=== PATIENT | male | born 1980 | race Hispanic/Latino ===

== ENCOUNTER 2020-06-19 07:43 | Inpatient (IN) | payer MEDICAID, OTHER ==
[~2020-06-19] VITALS: Ht 167.6 cm; Wt 119.3 kg
[2020-06-19 08:08] LABS: BASOPHILS % (AUTO) 0.5 % (0.0-5.0); HEMATOCRIT 44.9 % (42-54); LYMPHOCYTES % (AUTO) 11.2 % (21.0-51.0); MEAN CORPUSCULAR HEMOGLOBIN 27.9 pg (27.0-33.0); MEAN CORPUSCULAR HGB CONC 32.3 g/dL (32.0-36.0); MEAN CORPUSCULAR VOLUME 86.5 fL (79-99); MONOCYTES % (AUTO) 5.2 % (3.0-13.0); NEUTROPHILS % (AUTO) 81.8 % (40.0-77.0); PLATELET COUNT (AUTO) 332 K/uL (130-400); RED BLOOD CELL COUNT(AUTO) 5.19 MIL/uL (4.50-6.20); RED CELL DISTRIBUTION WIDTH 14.8 % (11.0-15.5); WHITE BLOOD COUNT (AUTO) 7.7 K/uL (4.8-10.8)
[2020-06-19] MEDS ORDERED: ASPIRIN 325 MG TABLET ONE (08:20)
[2020-06-19 08:21] LABS: INR 1.25 (0.85-1.15); PROTHROMBIN TIME 13.1 SEC (9.6-11.6)
[2020-06-19 08:22] LABS: APPEARANCE,URINE Clear (CLEAR); BILIRUBIN,URINE Negative (NEGATIVE); COLOR,URINE Yellow (YELLOW); GLUCOSE, URINE (UA) Negative (NEGATIVE); KETONES,URINE Negative (NEGATIVE); LEUKOCYTE ESTERASE ,URINE Trace (NEGATIVE); NITRATE,URINE Negative (NEGATIVE); OCCULT BLOOD,URINE Negative (NEGATIVE); PH,URINE 5.5 (5.0-8.0); PROTEIN,URINE POS 2+ mg/dL (NEGATIVE); UROBILINOGEN,URINE 0.2 mg/dL (0.2-1.0)
[2020-06-19 08:23] LABS: PARTIAL THROMBOPLASTIN TIME 27.6 SEC (26.3-35.5)
[2020-06-19 08:29] LABS: AMPHET/METH SCREEN,URINE NEGATIVE (NEGATIVE); BARBITURATE SCREEN, URINE NEGATIVE (NEGATIVE); BENZODIAZEPINES SCREEN,URINE NEGATIVE (NEGATIVE); CANNABINOID SCREEN,URINE NEGATIVE (NEGATIVE); COCAINE SCREEN,URINE NEGATIVE (NEGATIVE); OPIATE SCREEN,URINE NEGATIVE (NEGATIVE); PHENCYCLIDINE SCREEN,URINE NEGATIVE (NEGATIVE)
[2020-06-19 08:29] LABS: ALBUMIN 3.5 g/dL (3.5-5.0); BILIRUBIN,TOTAL 0.9 mg/dL (0.2-1.0); CREATININE 1.5 mg/dL (0.5-1.5); POTASSIUM 3.5 mmol/L (3.5-5.1); TOTAL PROTEIN, SERUM 7.6 g/dL (6.0-8.3)
[2020-06-19 08:48] LABS: BACTERIA,URINE Rare /HPF (None Seen); RBC,URINE None Seen /HPF (0-1)
[2020-06-19 08:49] LABS: SQUAMOUS EPITHELIAL CELL,UR 0-2 /HPF (0-2)
[2020-06-19] MEDS ORDERED: METOPROLOL TARTRATE 1 MG/ML 5ML VIAL IV ONE (08:59)
[2020-06-19] MEDS ORDERED: LORAZEPAM 2 MG/ML 1 ML VIAL ONE ×2 (09:19→23:17)
[2020-06-19 13:33] LABS: THYROID STIMULATING HORMONE 2.32 uIU/mL (0.36-3.74)
[2020-06-19] MEDS ORDERED: FUROSEMIDE 20MG VIAL IV SCH (14:00)
[2020-06-19] MEDS ORDERED: FUROSEMIDE 20MG VIAL ONE (15:07)
[2020-06-19] MEDS ORDERED: ATORVASTATIN 20 MG TABLET ONE (19:44)
[2020-06-19] MEDS ORDERED: METOPROLOL TARTRATE 25 MG TAB ONE (19:44)
[2020-06-19] MEDS ORDERED: FAMOTIDINE 20MG TAB ONE (19:44)
[2020-06-19] MEDS: METOPROLOL TARTRATE 25 MG TAB PO SCH (21:00)
[2020-06-19] MEDS: ATORVASTATIN 20 MG TABLET PO SCH (21:00)
[2020-06-19] MEDS: FAMOTIDINE 20MG TAB PO SCH (21:00)
[2020-06-19] MEDS ORDERED: MAG/ALUM/SIMETH 30 ML UDCUP ONE (21:43)
[2020-06-20 05:37] LABS: BASOPHILS % (AUTO) 0.9 % (0.0-5.0); EOSINOPHILS % (AUTO) 1.1 % (0.0-8.0); HEMATOCRIT 44.9 % (42-54); LYMPHOCYTES % (AUTO) 17.7 % (21.0-51.0); MEAN CORPUSCULAR HEMOGLOBIN 28.2 pg (27.0-33.0); MEAN CORPUSCULAR VOLUME 85.7 fL (79-99); MONOCYTES % (AUTO) 6.5 % (3.0-13.0); NEUTROPHILS % (AUTO) 73.4 % (40.0-77.0); PLATELET COUNT (AUTO) 314 K/uL (130-400); RED BLOOD CELL COUNT(AUTO) 5.24 MIL/uL (4.50-6.20); RED CELL DISTRIBUTION WIDTH 14.7 % (11.0-15.5); WHITE BLOOD COUNT (AUTO) 7.9 K/uL (4.8-10.8)
[2020-06-20 06:13] LABS: CREATININE 1.5 mg/dL (0.5-1.5); POTASSIUM 4.2 mmol/L (3.5-5.1)
[2020-06-20] MEDS ORDERED: ASPIRIN 81MG CHEW TAB ONE (08:17)
[2020-06-20] MEDS ORDERED: FAMOTIDINE 20MG TAB ONE ×2 (08:17→20:07)
[2020-06-20] MEDS ORDERED: METOPROLOL TARTRATE 25 MG TAB ONE ×2 (08:18→10:04)
[2020-06-20] MEDS ORDERED: ENOXAPARIN SODIUM 40 MG/0.4 ML SYRINGE SQ ONE (08:18)
[2020-06-20] MEDS: ASPIRIN 81MG CHEW TAB PO SCH (09:00)
[2020-06-20] MEDS: FAMOTIDINE 20MG TAB PO SCH ×2 (09:00→21:00)
[2020-06-20] MEDS: METOPROLOL TARTRATE 25 MG TAB PO SCH ×2 (09:00→21:00)
[2020-06-20] MEDS ORDERED: ENOXAPARIN SODIUM 40 MG/0.4 ML SYRINGE SQ SCH (09:00)
[2020-06-20] MEDS ORDERED: METOPROLOL TARTRATE 50 MG TAB ONE ×2 (10:04→20:07)
[2020-06-20] MEDS: LOSARTAN 50 MG TABLET PO SCH (10:15)
[2020-06-20] MEDS ORDERED: METOPROLOL TARTRATE 50 MG TAB PO SCH ×2 (10:15→21:00)
[2020-06-20] MEDS ORDERED: FUROSEMIDE 40MG VIAL IV SCH (10:15)
[2020-06-20] MEDS: SPIRONOLACTONE 25 MG TAB PO SCH (10:15)
[2020-06-20] MEDS ORDERED: FUROSEMIDE 40MG VIAL ONE (10:55)
[2020-06-20] MEDS ORDERED: SPIRONOLACTONE 25 MG TAB ONE (10:56)
[2020-06-20] MEDS ORDERED: LOSARTAN 50 MG TABLET ONE (10:56)
[2020-06-20] MEDS ORDERED: ALPRAZOLAM 0.25 MG TABLET ONE (12:17)
[2020-06-20] MEDS ORDERED: DiphenhydrAMINE HCL 50 MG/ML VIAL ONE (15:31)
[2020-06-20] MEDS ORDERED: ATORVASTATIN 20 MG TABLET ONE (20:07)
[2020-06-20] MEDS: ATORVASTATIN 20 MG TABLET PO SCH (21:00)
[2020-06-20 22:45] VITALS: BP 131/89
[2020-06-20] MEDS ORDERED: METO-391 PO (22:58)
[2020-06-20] MEDS ORDERED: MAGN100T5 PO (22:58)
[2020-06-20] MEDS ORDERED: SPIR50TA5 PO (22:58)
[2020-06-20] MEDS ORDERED: TAMS-1 PO (22:58)
[2020-06-20] MEDS ORDERED: FURO40TA5 PO (22:58)
[2020-06-20] MEDS ORDERED: LISI20TA24 PO (22:58)
[2020-06-20] MEDS ORDERED: APIX5TAB PO (22:58)
[2020-06-21] MEDS ORDERED: TEMAZEPAM 7.5 MG CAPSULE PO ONE (00:12)
[2020-06-21 03:49] LABS: POTASSIUM 4.6 mmol/L (3.5-5.1)
[2020-06-21 04:09] VITALS: BP 97/65
[2020-06-21 07:30] VITALS: BP 126/81
[2020-06-21] MEDS ORDERED: DIGOXIN 250 MCG/ML 2ML AMP IV SCH (09:45)
[2020-06-21] MEDS: FAMOTIDINE 20MG TAB PO SCH ×2 (10:19→20:24)
[2020-06-21] MEDS: ASPIRIN 81MG CHEW TAB PO SCH (10:19)
[2020-06-21] MEDS: APIXABAN 5 MG TABLET PO SCH ×2 (10:19→20:23)
[2020-06-21] MEDS: FUROSEMIDE 20MG VIAL IV SCH ×2 (10:19→20:52)
[2020-06-21] MEDS: LOSARTAN 50 MG TABLET PO SCH (10:19)
[2020-06-21] MEDS: SPIRONOLACTONE 25 MG TAB PO SCH (10:20)
[2020-06-21 11:55] VITALS: BP 121/91
[2020-06-21] MEDS: MAGNESIUM CHLORIDE 70 MG TABLET.SA PO SCH ×2 (12:27→20:23)
[2020-06-21] MEDS: METOPROLOL SUCCINATE 50 MG TAB.SR.24H PO SCH ×2 (12:27→20:23)
[2020-06-21] MEDS: LISINOPRIL 20 MG TABLET PO SCH ×2 (12:28→20:24)
[2020-06-21 15:50] VITALS: BP 119/88
[2020-06-21 19:31] VITALS: BP 132/77
[2020-06-21] MEDS: ATORVASTATIN 20 MG TABLET PO SCH (20:23)
[2020-06-21] MEDS: TEMAZEPAM 7.5 MG CAPSULE PO PRN (22:14)
[2020-06-22] VITALS (7 sets, daily range): BP systolic 100–128; BP diastolic 59–86
[2020-06-22 05:48] LABS: BASOPHILS % (AUTO) 0.7 % (0.0-5.0); EOSINOPHILS % (AUTO) 1.9 % (0.0-8.0); HEMATOCRIT 46.6 % (42-54); LYMPHOCYTES % (AUTO) 14.1 % (21.0-51.0); MEAN CORPUSCULAR HEMOGLOBIN 28.4 pg (27.0-33.0); MEAN CORPUSCULAR HGB CONC 32.6 g/dL (32.0-36.0); MEAN CORPUSCULAR VOLUME 87.1 fL (79-99); NEUTROPHILS % (AUTO) 75.1 % (40.0-77.0); PLATELET COUNT (AUTO) 306 K/uL (130-400); RED BLOOD CELL COUNT(AUTO) 5.35 MIL/uL (4.50-6.20); RED CELL DISTRIBUTION WIDTH 14.9 % (11.0-15.5); WHITE BLOOD COUNT (AUTO) 9.1 K/uL (4.8-10.8)
[2020-06-22 06:03] LABS: CREATININE 1.8 mg/dL (0.5-1.5); MAGNESIUM 1.9 mg/dL (1.80-2.40)
[2020-06-22] MEDS: MAGNESIUM CHLORIDE 70 MG TABLET.SA PO SCH ×2 (10:09→19:55)
[2020-06-22] MEDS: SPIRONOLACTONE 25 MG TAB PO SCH (10:09)
[2020-06-22] MEDS: APIXABAN 5 MG TABLET PO SCH ×2 (10:09→19:55)
[2020-06-22] MEDS: LOSARTAN 50 MG TABLET PO SCH (10:09)
[2020-06-22] MEDS: LISINOPRIL 20 MG TABLET PO SCH ×2 (10:09→19:54)
[2020-06-22] MEDS: FAMOTIDINE 20MG TAB PO SCH ×2 (10:09→19:55)
[2020-06-22] MEDS: METOPROLOL SUCCINATE 50 MG TAB.SR.24H PO SCH ×2 (10:09→19:56)
[2020-06-22] MEDS: FUROSEMIDE 20MG VIAL IV SCH ×2 (10:13→19:56)
[2020-06-22] MEDS: ATORVASTATIN 20 MG TABLET PO SCH (19:55)
[2020-06-22] MEDS: TEMAZEPAM 7.5 MG CAPSULE PO PRN (22:26)
[2020-06-23 03:36] VITALS: BP 121/62
[2020-06-23 06:17] LABS: CREATININE 1.6 mg/dL (0.5-1.5); POTASSIUM 3.8 mmol/L (3.5-5.1)
[2020-06-23] MEDS ORDERED: APIX5TAB PO (07:47)
[2020-06-23] MEDS ORDERED: METO-391 PO (07:47)
[2020-06-23] MEDS ORDERED: MAGN100T5 PO (07:47)
[2020-06-23] MEDS ORDERED: FURO40TA5 PO (07:47)
[2020-06-23] MEDS ORDERED: SPIR50TA5 PO (07:47)
[2020-06-23] MEDS ORDERED: LISI20TA24 PO (07:48)
[2020-06-23 08:00] VITALS: BP 124/76
[2020-06-23] MEDS: LISINOPRIL 20 MG TABLET PO SCH (08:54)
[2020-06-23] MEDS: FAMOTIDINE 20MG TAB PO SCH (08:55)
[2020-06-23] MEDS: APIXABAN 5 MG TABLET PO SCH (08:55)
[2020-06-23] MEDS: METOPROLOL SUCCINATE 50 MG TAB.SR.24H PO SCH (08:55)
[2020-06-23] MEDS: LOSARTAN 50 MG TABLET PO SCH (08:55)
[2020-06-23] MEDS: SPIRONOLACTONE 25 MG TAB PO SCH (08:55)
[2020-06-23] MEDS: FUROSEMIDE 20MG VIAL IV SCH (08:55)
[2020-06-23] MEDS: MAGNESIUM CHLORIDE 70 MG TABLET.SA PO SCH (10:13)
[2020-07-22] MEDS ORDERED: AMIO200T68 PO (04:55)
[2020-07-26] MEDS ORDERED: LEVO500T90 PO (11:26)
== END 2020-06-23 12:15 | disposition home or self-care (01) | DRG 292 ==
LOC: EDH 07:43 → EDHIP 07:44 → EDBD 07:44 → OBSVTOIN 07:44 → UNDOADMOB 07:45 → OBSVTOIN 07:45 → INTOOBSV 07:45 → EDHIP 07:45 → UNDOADMOB 11:19 → 4DH 06-20 22:31
PROVIDERS: ADMIT Hospitalist; ATTEND Hospitalist
DX: I11.0 Hypertensive heart disease with heart failure (principal); Z16.24 Resistance to multiple antibiotics; Z68.41 Body mass index [BMI] 40.0-44.9, adult; I48.19 Other persistent atrial fibrillation; I50.43 Acute on chronic combined systolic (congestive) and diastolic (congestive) heart failure; I42.0 Dilated cardiomyopathy; E66.01 Morbid (severe) obesity due to excess calories; G47.33 Obstructive sleep apnea (adult) (pediatric); E78.5 Hyperlipidemia, unspecified; F14.90 Cocaine use, unspecified, uncomplicated; N20.0 Calculus of kidney; I25.10 Atherosclerotic heart disease of native coronary artery without angina pectoris; I51.3 Intracardiac thrombosis, not elsewhere classified; Z79.01 Long term (current) use of anticoagulants; Z79.899 Other long term (current) drug therapy; Z87.442 Personal history of urinary calculi; Z91.19 Patient's noncompliance with other medical treatment and regimen
CPT/HCPCS: 36415; 70450; 71045; 80048; 80053; 80061; 80305; 81001; 82550; 83735; 83880; 84443; 84484; 85025; 85610; 85730; 93005; G0378; J1160; J1200; J1650; J1940; J2060; J3490

== ENCOUNTER 2020-06-29 18:51 | Inpatient (IN) | payer MEDICAID, OTHER ==
[~2020-06-29] VITALS: Ht 170.2 cm; Wt 112.6 kg
[~2020-06-29 18:51] MED LIST: APIX5TAB PO; FURO40TA5 PO; LISI20TA24 PO; MAGN100T5 PO; METO-391 PO; SPIR50TA5 PO; TAMS-1 PO
[2020-06-29 19:21] LABS: BASOPHILS % (AUTO) 0.6 % (0.0-5.0); EOSINOPHILS % (AUTO) 0.6 % (0.0-8.0); HEMATOCRIT 44.2 % (42-54); LYMPHOCYTES % (AUTO) 11.3 % (21.0-51.0); MEAN CORPUSCULAR HEMOGLOBIN 28.2 pg (27.0-33.0); MEAN CORPUSCULAR HGB CONC 32.8 g/dL (32.0-36.0); MONOCYTES % (AUTO) 4.9 % (3.0-13.0); NEUTROPHILS % (AUTO) 82.4 % (40.0-77.0); PLATELET COUNT (AUTO) 270 K/uL (130-400); RED BLOOD CELL COUNT(AUTO) 5.14 MIL/uL (4.50-6.20); RED CELL DISTRIBUTION WIDTH 15.2 % (11.0-15.5)
[2020-06-29 19:32] LABS: CREATININE 1.8 mg/dL (0.5-1.5); POTASSIUM 3.7 mmol/L (3.5-5.1)
[2020-06-29 19:33] LABS: INR 1.34 (0.85-1.15); PROTHROMBIN TIME 14.2 SEC (9.6-11.6)
[2020-06-29 19:35] LABS: PARTIAL THROMBOPLASTIN TIME 29.9 SEC (26.3-35.5)
[2020-06-29 19:37] LABS: ALBUMIN 3.3 g/dL (3.5-5.0); BILIRUBIN,TOTAL 1.4 mg/dL (0.2-1.0); TOTAL PROTEIN, SERUM 7.4 g/dL (6.0-8.3)
[2020-06-29 19:58] LABS: B-TYPE NATRIURETIC PEPTIDE 1190 pg/mL (0-100)
[2020-06-29 20:34] LABS: APPEARANCE,URINE Clear (CLEAR); BILIRUBIN,URINE Negative (NEGATIVE); COLOR,URINE Yellow (YELLOW); GLUCOSE, URINE (UA) Negative (NEGATIVE); KETONES,URINE Negative (NEGATIVE); LEUKOCYTE ESTERASE ,URINE Negative (NEGATIVE); NITRATE,URINE Negative (NEGATIVE); OCCULT BLOOD,URINE Negative (NEGATIVE); PROTEIN,URINE 300 mg/dL (NEGATIVE)
[2020-06-29 20:39] LABS: BACTERIA,URINE Rare /HPF (None Seen); RBC,URINE 0-1 /HPF (0-1)
[2020-06-29 20:40] LABS: HYALINE CASTS, URINE 0-1 /LPF (0-1 /LPF); MUCUS,URINE Rare LPF (None Seen); SQUAMOUS EPITHELIAL CELL,UR Few /HPF (0-2)
[2020-06-29] MEDS ORDERED: FUROSEMIDE 40MG VIAL ONE (21:06)
[2020-06-29] MEDS ORDERED: LORAZEPAM 2 MG/ML 1 ML VIAL ONE (21:23)
[2020-06-29 21:41] LABS: AMPHET/METH SCREEN,URINE NEGATIVE (NEGATIVE); BARBITURATE SCREEN, URINE NEGATIVE (NEGATIVE); BENZODIAZEPINES SCREEN,URINE NEGATIVE (NEGATIVE); CANNABINOID SCREEN,URINE NEGATIVE (NEGATIVE); COCAINE SCREEN,URINE NEGATIVE (NEGATIVE); OPIATE SCREEN,URINE NEGATIVE (NEGATIVE); PHENCYCLIDINE SCREEN,URINE NEGATIVE (NEGATIVE)
[2020-06-29] MEDS ORDERED: ACETAMINOPHEN 325 MG TAB PO PRN ×2 (22:45)
[2020-06-29] MEDS ORDERED: GUAIFENESIN-DM 200/20 MG 10 ML PO PRN (22:45)
[2020-06-29] MEDS ORDERED: DiphenhydrAMINE HCL 50 MG/ML VIAL IV PRN (22:45)
[2020-06-29] MEDS ORDERED: ONDANSETRON 4MG INJ IV PRN (22:45)
[2020-06-29] MEDS ORDERED: NITROGLYCERIN 0.4 MG SL TAB SL PRN (22:45)
[2020-06-29] MEDS ORDERED: MAG/ALUM/SIMETH 30 ML UDCUP PO PRN (22:45)
[2020-06-29] MEDS ORDERED: LACTULOSE 20 GM/30 ML UDCUP PO PRN (22:45)
[2020-06-29] MEDS ORDERED: METOPROLOL TARTRATE 50 MG TAB PO SCH (22:45)
[2020-06-29] MEDS ORDERED: DIPHENHYDRAMINE HCL 25 MG CAPSULE PO PRN (22:45)
[2020-06-29] MEDS ORDERED: METOPROLOL TARTRATE 1 MG/ML 5ML VIAL IV ONE (23:13)
[2020-06-29] MEDS ORDERED: METOPROLOL TARTRATE 50 MG TAB ONE (23:50)
[2020-06-30] MEDS ORDERED: METOPROLOL TARTRATE 1 MG/ML 5ML VIAL IV ONE (01:30)
[2020-06-30] MEDS ORDERED: BENZONATATE 100 MG CAPSULE PO ONE (01:31)
[2020-06-30] MEDS ORDERED: LORAZEPAM 2 MG/ML 1 ML VIAL ONE (02:06)
[2020-06-30] MEDS: FUROSEMIDE 40MG VIAL IV SCH (06:00)
[2020-06-30] MEDS: APIXABAN 5 MG TABLET PO SCH ×2 (09:00→21:00)
[2020-06-30] MEDS: SPIRONOLACTONE 25 MG TAB PO SCH (09:00)
[2020-06-30] MEDS: LISINOPRIL 20 MG TABLET PO SCH (09:00)
[2020-06-30] MEDS ORDERED: METOPROLOL TARTRATE 50 MG TAB ONE ×2 (10:28→22:07)
[2020-06-30] MEDS ORDERED: APIXABAN 2.5 MG TABLET PO ONE ×2 (10:28→22:07)
[2020-06-30] MEDS ORDERED: SPIRONOLACTONE 25 MG TAB ONE (10:29)
[2020-06-30] MEDS ORDERED: LISINOPRIL 20 MG TABLET ONE (10:29)
[2020-06-30] MEDS ORDERED: METOPROLOL TARTRATE 1 MG/ML 5ML VIAL IV PRN (15:30)
[2020-06-30] MEDS ORDERED: DIGOXIN 250 MCG/ML 2ML AMP ONE (15:58)
[2020-06-30] MEDS ORDERED: DIGOXIN 250 MCG/ML 2ML AMP IV SCH ×2 (16:00→22:00)
[2020-07-01] MEDS ORDERED: DIGOXIN 250 MCG/ML 2ML AMP ONE (03:44)
[2020-07-01] MEDS: FUROSEMIDE 40MG VIAL IV SCH ×2 (06:00→18:00)
[2020-07-01] MEDS: SPIRONOLACTONE 25 MG TAB PO SCH (09:00)
[2020-07-01] MEDS: LISINOPRIL 20 MG TABLET PO SCH (09:00)
[2020-07-01] MEDS: APIXABAN 5 MG TABLET PO SCH ×2 (09:00→21:00)
[2020-07-01] MEDS ORDERED: SPIRONOLACTONE 25 MG TAB ONE (09:09)
[2020-07-01] MEDS ORDERED: LISINOPRIL 20 MG TABLET ONE (09:09)
[2020-07-01] MEDS ORDERED: METOPROLOL TARTRATE 25 MG TAB ONE (09:09)
[2020-07-01] MEDS ORDERED: LORAZEPAM 0.5 MG TABLET ONE (14:24)
[2020-07-01] MEDS ORDERED: HYDROXYZINE 25 MG TABLET ONE (14:30)
[2020-07-01] MEDS ORDERED: ACETAMINOPHEN 325 MG TAB ONE (17:32)
[2020-07-01] MEDS ORDERED: ACETAMINOPHEN WITH CODEINE 1 TAB TAB PO PRN (22:15)
[2020-07-01] MEDS ORDERED: METOPROLOL TARTRATE 50 MG TAB ONE (22:24)
[2020-07-01] MEDS ORDERED: ACETAMINOPHEN WITH CODEINE 1 TAB TAB ONE (22:24)
[2020-07-01] MEDS ORDERED: HYDRALAZINE 25MG TABLET ONE (22:24)
[2020-07-01] MEDS ORDERED: FUROSEMIDE 40MG VIAL ONE (22:27)
[2020-07-02 05:24] LABS: BASOPHILS % (AUTO) 0.6 % (0.0-5.0); EOSINOPHILS % (AUTO) 3.5 % (0.0-8.0); HEMATOCRIT 42.6 % (42-54); LYMPHOCYTES % (AUTO) 12.1 % (21.0-51.0); MEAN CORPUSCULAR HGB CONC 32.4 g/dL (32.0-36.0); MEAN CORPUSCULAR VOLUME 86.6 fL (79-99); MONOCYTES % (AUTO) 8.7 % (3.0-13.0); NEUTROPHILS % (AUTO) 74.8 % (40.0-77.0); PLATELET COUNT (AUTO) 225 K/uL (130-400); RED BLOOD CELL COUNT(AUTO) 4.92 MIL/uL (4.50-6.20); RED CELL DISTRIBUTION WIDTH 15.3 % (11.0-15.5); WHITE BLOOD COUNT (AUTO) 6.9 K/uL (4.8-10.8)
[2020-07-02 05:46] LABS: CREATININE 1.3 mg/dL (0.5-1.5); POTASSIUM 3.7 mmol/L (3.5-5.1); TOTAL PROTEIN, SERUM 6.9 g/dL (6.0-8.3)
[2020-07-02] MEDS: FUROSEMIDE 40MG VIAL IV SCH ×2 (06:00→18:00)
[2020-07-02] MEDS ORDERED: ACETAMINOPHEN WITH CODEINE 1 TAB TAB ONE ×3 (07:16→20:09)
[2020-07-02] MEDS ORDERED: APIXABAN 2.5 MG TABLET PO ONE (08:33)
[2020-07-02] MEDS ORDERED: METOPROLOL TARTRATE 50 MG TAB ONE ×2 (08:33→20:09)
[2020-07-02] MEDS ORDERED: SPIRONOLACTONE 25 MG TAB ONE (08:33)
[2020-07-02] MEDS ORDERED: LISINOPRIL 20 MG TABLET ONE (08:34)
[2020-07-02] MEDS: SPIRONOLACTONE 25 MG TAB PO SCH (09:00)
[2020-07-02] MEDS: LISINOPRIL 20 MG TABLET PO SCH (09:00)
[2020-07-02] MEDS: APIXABAN 5 MG TABLET PO SCH ×2 (09:00→21:00)
[2020-07-02] MEDS ORDERED: AMIODARONE 150MG VIAL 150 MG in DEXTROSE 5%-WATER 100 ML IV SCH (10:30)
[2020-07-02] MEDS ORDERED: AMIODARONE 900MG VIAL 360 MG in DEXTROSE 5%-WATER 200 ML IV SCH (10:30)
[2020-07-02] MEDS ORDERED: AMIODARONE 900MG VIAL 450 MG in DEXTROSE 5%-WATER 250 ML IV SCH (10:30)
[2020-07-02] MEDS ORDERED: HYDROXYZINE 25 MG TABLET ONE (15:47)
[2020-07-02] MEDS ORDERED: DIGOXIN 125 MCG TABLET PO SCH (16:00)
[2020-07-02] MEDS ORDERED: LIDOCAINE HCL 2% VISCOUS 15 ML UDCUP ONE (17:56)
[2020-07-02] MEDS ORDERED: MAG/ALUM/SIMETH 30 ML UDCUP ONE (17:56)
[2020-07-02] MEDS ORDERED: FAMOTIDINE 20MG TAB ONE (17:56)
[2020-07-02] MEDS ORDERED: FUROSEMIDE 40MG VIAL ONE (18:44)
[2020-07-02] MEDS: DIGOXIN 125 MCG TABLET PO SCH (21:00)
[2020-07-02] MEDS: METOPROLOL SUCCINATE 50 MG TAB.SR.24H PO SCH (21:00)
[2020-07-03 03:39] VITALS: BP 136/87
[2020-07-03 04:20] VITALS: BP 133/85
[2020-07-03 05:53] LABS: BASOPHILS % (AUTO) 0.3 % (0.0-5.0); EOSINOPHILS % (AUTO) 1.7 % (0.0-8.0); HEMATOCRIT 47.2 % (42-54); LYMPHOCYTES % (AUTO) 9.4 % (21.0-51.0); MEAN CORPUSCULAR HEMOGLOBIN 27.8 pg (27.0-33.0); MEAN CORPUSCULAR HGB CONC 32.4 g/dL (32.0-36.0); MEAN CORPUSCULAR VOLUME 85.8 fL (79-99); MONOCYTES % (AUTO) 9.4 % (3.0-13.0); NEUTROPHILS % (AUTO) 78.7 % (40.0-77.0); PLATELET COUNT (AUTO) 282 K/uL (130-400); RED CELL DISTRIBUTION WIDTH 15.6 % (11.0-15.5); WHITE BLOOD COUNT (AUTO) 8.9 K/uL (4.8-10.8)
[2020-07-03] MEDS: FUROSEMIDE 40MG VIAL IV SCH ×3 (06:00→21:51)
[2020-07-03 06:23] LABS: ALBUMIN 3.5 g/dL (3.5-5.0); BILIRUBIN,TOTAL 2.5 mg/dL (0.2-1.0); CREATININE 1.4 mg/dL (0.5-1.5); DIGOXIN 0.72 ng/mL (0.50-2.00); MAGNESIUM 1.6 mg/dL (1.80-2.40); POTASSIUM 3.8 mmol/L (3.5-5.1); TOTAL PROTEIN, SERUM 8.2 g/dL (6.0-8.3)
[2020-07-03] MEDS ORDERED: FENTANYL CITRATE PF 50 MCG/1 ML 2ML VIAL IVP SCH (08:00)
[2020-07-03] MEDS ORDERED: MIDAZOLAM HCL 1 MG/ML 2ML VIAL IVP SCH (08:00)
[2020-07-03] MEDS ORDERED: FLUMAZENIL 0.1MG/1ML 5ML VIAL IV SCH (08:00)
[2020-07-03 08:40] VITALS: BP 138/89
[2020-07-03] MEDS ORDERED: PROPOFOL 10 MG/ML 20ML VIAL IV ONE (09:54)
[2020-07-03 11:35] VITALS: BP 148/81
[2020-07-03] MEDS ORDERED: MAGNESIUM 2GM PREMIX 50ML 50 ML IV ONE (12:21)
[2020-07-03] MEDS ORDERED: FLUMAZENIL 0.1MG/1ML 5ML VIAL IV ONE (13:46)
[2020-07-03] MEDS ORDERED: FENTANYL CITRATE PF 50 MCG/1 ML 2ML VIAL ONE (13:47)
[2020-07-03] MEDS ORDERED: MIDAZOLAM HCL 1 MG/ML 2ML VIAL ONE (13:47)
[2020-07-03] MEDS ORDERED: LIDOCAINE HCL 2% VISCOUS 15 ML UDCUP ONE (13:59)
[2020-07-03] MEDS ORDERED: HEPARIN 25,000 UNITS/250ML D5W 250 ML IV ONE (14:27)
[2020-07-03] MEDS ORDERED: HEPARIN 10,000 UNIT/10ML (1,000 UNIT/ML) VIAL ONE (14:27)
[2020-07-03] MEDS ORDERED: HEPARIN 25,000 UNITS/250ML D5W 250 ML IV SCH (14:45)
[2020-07-03] MEDS: LISINOPRIL 20 MG TABLET PO SCH (15:53)
[2020-07-03] MEDS: SPIRONOLACTONE 25 MG TAB PO SCH (15:53)
[2020-07-03] MEDS: METOPROLOL SUCCINATE 50 MG TAB.SR.24H PO SCH (15:54)
[2020-07-03] MEDS: DIGOXIN 125 MCG TABLET PO SCH (16:02)
[2020-07-03 16:48] VITALS: BP 149/88
[2020-07-03 19:00] VITALS: BP 122/87
[2020-07-03] MEDS: AMIODARONE 200 MG TABLET PO SCH (21:50)
[2020-07-04] VITALS (8 sets, daily range): BP systolic 98–122; BP diastolic 67–92
[2020-07-04] MEDS: METOPROLOL SUCCINATE 50 MG TAB.SR.24H PO SCH ×3 (03:18→21:56)
[2020-07-04] MEDS: FUROSEMIDE 40MG VIAL IV SCH (06:12)
[2020-07-04 06:20] LABS: BASOPHILS % (AUTO) 0.5 % (0.0-5.0); EOSINOPHILS % (AUTO) 1.8 % (0.0-8.0); HEMATOCRIT 43.8 % (42-54); LYMPHOCYTES % (AUTO) 11.2 % (21.0-51.0); MEAN CORPUSCULAR HEMOGLOBIN 27.9 pg (27.0-33.0); MEAN CORPUSCULAR HGB CONC 32.9 g/dL (32.0-36.0); MEAN CORPUSCULAR VOLUME 84.9 fL (79-99); MONOCYTES % (AUTO) 12.7 % (3.0-13.0); NEUTROPHILS % (AUTO) 73.5 % (40.0-77.0); PLATELET COUNT (AUTO) 254 K/uL (130-400); RED BLOOD CELL COUNT(AUTO) 5.16 MIL/uL (4.50-6.20); RED CELL DISTRIBUTION WIDTH 15.4 % (11.0-15.5); WHITE BLOOD COUNT (AUTO) 7.7 K/uL (4.8-10.8)
[2020-07-04 06:27] LABS: ALBUMIN 3.1 g/dL (3.5-5.0); BILIRUBIN,TOTAL 2.3 mg/dL (0.2-1.0); CREATININE 1.4 mg/dL (0.5-1.5); MAGNESIUM 1.6 mg/dL (1.80-2.40); POTASSIUM 3.9 mmol/L (3.5-5.1); TOTAL PROTEIN, SERUM 7.4 g/dL (6.0-8.3)
[2020-07-04] MEDS: LISINOPRIL 20 MG TABLET PO SCH (08:23)
[2020-07-04] MEDS: AMIODARONE 200 MG TABLET PO SCH ×2 (08:23→21:56)
[2020-07-04] MEDS: SPIRONOLACTONE 25 MG TAB PO SCH (08:23)
[2020-07-04] MEDS: DIGOXIN 125 MCG TABLET PO SCH (08:24)
[2020-07-04] MEDS ORDERED: MAGNESIUM 4GM PREMIX 100ML 100 ML IV PRN (09:45)
[2020-07-04] MEDS: COLCHICINE 0.6 MG TABLET PO SCH ×2 (10:20→21:58)
[2020-07-04] MEDS: APIXABAN 5 MG TABLET PO SCH ×2 (10:21→21:58)
[2020-07-04] MEDS: NAPROXEN 250 MG TAB PO SCH ×2 (10:23→21:56)
[2020-07-04] MEDS: FUROSEMIDE 40 MG TABLET PO SCH (16:01)
[2020-07-05 00:30] VITALS: BP 115/82
[2020-07-05 04:08] LABS: CREATININE 1.6 mg/dL (0.5-1.5); MAGNESIUM 2.2 mg/dL (1.80-2.40); POTASSIUM 4.3 mmol/L (3.5-5.1)
[2020-07-05 04:38] VITALS: BP 151/99
[2020-07-05] MEDS: APIXABAN 5 MG TABLET PO SCH (08:12)
[2020-07-05] MEDS: AMIODARONE 200 MG TABLET PO SCH (08:12)
[2020-07-05] MEDS: SPIRONOLACTONE 25 MG TAB PO SCH (08:12)
[2020-07-05] MEDS: METOPROLOL SUCCINATE 50 MG TAB.SR.24H PO SCH (08:12)
[2020-07-05] MEDS: COLCHICINE 0.6 MG TABLET PO SCH (08:12)
[2020-07-05] MEDS: DIGOXIN 125 MCG TABLET PO SCH (08:12)
[2020-07-05] MEDS: LISINOPRIL 20 MG TABLET PO SCH (08:13)
[2020-07-05] MEDS: NAPROXEN 250 MG TAB PO SCH (08:13)
[2020-07-05] MEDS: FUROSEMIDE 40 MG TABLET PO SCH ×2 (08:13→16:37)
[2020-07-05 08:34] VITALS: BP 125/95
[2020-07-05] MEDS ORDERED: AMIO200T44 PO (09:49)
[2020-07-05] MEDS ORDERED: LISI20TA24 PO (09:49)
[2020-07-05 12:19] VITALS: BP 113/82
[2020-07-22] MEDS ORDERED: AMIO200T68 PO (04:55)
[2020-07-26] MEDS ORDERED: LEVO500T90 PO (11:26)
== END 2020-07-05 16:45 | disposition home or self-care (01) | DRG 308 ==
LOC: EDH 18:51 → EDHIP 18:52 → 4DH 07-03 03:08
PROVIDERS: ADMIT Family Medicine; ATTEND Family Medicine
PROC: 5A2204Z Restoration of Cardiac Rhythm, Single (ICD-10-PCS; principal; 2020-07-03)
PROC: B246ZZ4 Ultrasonography of Right and Left Heart, Transesophageal (ICD-10-PCS; 2020-07-03)
DX: I48.19 Other persistent atrial fibrillation (principal); I50.43 Acute on chronic combined systolic (congestive) and diastolic (congestive) heart failure; D68.59 Other primary thrombophilia; I42.0 Dilated cardiomyopathy; N20.0 Calculus of kidney; I11.0 Hypertensive heart disease with heart failure; E66.9 Obesity, unspecified; Z20.822 Contact with and (suspected) exposure to COVID-19; E78.5 Hyperlipidemia, unspecified; F41.9 Anxiety disorder, unspecified; G47.33 Obstructive sleep apnea (adult) (pediatric); M10.9 Gout, unspecified; I25.10 Atherosclerotic heart disease of native coronary artery without angina pectoris; Z87.442 Personal history of urinary calculi; Z91.14 Patient's other noncompliance with medication regimen; Z91.19 Patient's noncompliance with other medical treatment and regimen; Z79.01 Long term (current) use of anticoagulants; Z79.899 Other long term (current) drug therapy; Z68.38 Body mass index [BMI] 38.0-38.9, adult
CPT/HCPCS: 36415; 71045; 80048; 80053; 80162; 80305; 81001; 82550; 82948; 83735; 83880; 84145; 84484; 85025; 85378; 85610; 85730; 86140; 87426; 92960; 93005; 93313; 99156; 99157; G0378; J0282; J1160; J1644; J1940; J2060; J2250; J2704; J3010; J3475; J3490; J7060; U0003

== ENCOUNTER 2020-07-22 00:08 | Inpatient (IN) | payer OTHER ==
[~2020-07-22] VITALS: Ht 167.6 cm; Wt 113.8 kg
[~2020-07-22 00:08] MED LIST changes: +AMIO200T44 PO; -TAMS-1 PO
[2020-07-22 00:59] LABS: BASOPHILS % (AUTO) 0.3 % (0.0-5.0); EOSINOPHILS % (AUTO) 3.2 % (0.0-8.0); HEMATOCRIT 48.7 % (42-54); LYMPHOCYTES % (AUTO) 13.7 % (21.0-51.0); MEAN CORPUSCULAR HEMOGLOBIN 27.7 pg (27.0-33.0); MEAN CORPUSCULAR HGB CONC 32.9 g/dL (32.0-36.0); MEAN CORPUSCULAR VOLUME 84.3 fL (79-99); MONOCYTES % (AUTO) 8.8 % (3.0-13.0); NEUTROPHILS % (AUTO) 73.8 % (40.0-77.0); PLATELET COUNT (AUTO) 269 K/uL (130-400); RED BLOOD CELL COUNT(AUTO) 5.78 MIL/uL (4.50-6.20); RED CELL DISTRIBUTION WIDTH 14.6 % (11.0-15.5); WHITE BLOOD COUNT (AUTO) 9.6 K/uL (4.8-10.8)
[2020-07-22 01:07] LABS: POTASSIUM 4.3 mmol/L (3.5-5.1)
[2020-07-22] MEDS ORDERED: ACETAMINOPHEN EXTRA STRENGTH 500 MG TABLET ONE (01:09)
[2020-07-22 01:12] LABS: ALBUMIN 3.5 g/dL (3.5-5.0); BILIRUBIN,TOTAL 0.4 mg/dL (0.2-1.0); TOTAL PROTEIN, SERUM 8.5 g/dL (6.0-8.3)
[2020-07-22 01:19] LABS: INR 1.02 (0.85-1.15); PROTHROMBIN TIME 11.1 SEC (9.6-11.6)
[2020-07-22 01:20] LABS: PARTIAL THROMBOPLASTIN TIME 29.2 SEC (26.3-35.5)
[2020-07-22 01:23] LABS: B-TYPE NATRIURETIC PEPTIDE 738 pg/mL (0-100)
[2020-07-22 01:50] LABS: APPEARANCE,URINE Clear (CLEAR); BILIRUBIN,URINE Negative (NEGATIVE); COLOR,URINE Yellow (YELLOW); GLUCOSE, URINE (UA) Negative (NEGATIVE); KETONES,URINE Negative (NEGATIVE); LEUKOCYTE ESTERASE ,URINE Moderate (NEGATIVE); NITRATE,URINE Negative (NEGATIVE); OCCULT BLOOD,URINE Negative (NEGATIVE); PROTEIN,URINE POS 2+ mg/dL (NEGATIVE)
[2020-07-22 01:58] LABS: AMPHET/METH SCREEN,URINE NEGATIVE (NEGATIVE); BARBITURATE SCREEN, URINE NEGATIVE (NEGATIVE); BENZODIAZEPINES SCREEN,URINE NEGATIVE (NEGATIVE); CANNABINOID SCREEN,URINE NEGATIVE (NEGATIVE); COCAINE SCREEN,URINE NEGATIVE (NEGATIVE); OPIATE SCREEN,URINE NEGATIVE (NEGATIVE); PHENCYCLIDINE SCREEN,URINE NEGATIVE (NEGATIVE)
[2020-07-22 02:11] LABS: BACTERIA,URINE Few /HPF (None Seen); MUCUS,URINE Rare LPF (None Seen); RBC,URINE None Seen /HPF (0-1); SQUAMOUS EPITHELIAL CELL,UR Few /HPF (0-2)
[2020-07-22] MEDS ORDERED: FUROSEMIDE 10 MG/ML 4ML VIAL ONE (02:41)
[2020-07-22] MEDS ORDERED: NITROGLYCERIN 1GM/1 INCH PACKET TD ONE (02:42)
[2020-07-22] MEDS ORDERED: CLINDAMYCIN 600 MG/D5% WATER 50 ML IV ONE (02:46)
[2020-07-22] MEDS ORDERED: CEFTRIAXONE SODIUM 1 GM ONE (03:12)
[2020-07-22] MEDS: CLINDAMYCIN 600 MG/D5% WATER 50 ML IV SCH ×3 (03:30→19:55)
[2020-07-22] MEDS ORDERED: LACTULOSE 20 GM/30 ML UDCUP PO PRN (03:30)
[2020-07-22] MEDS ORDERED: ONDANSETRON HCL 4 MG/2 ML VIAL IV PRN (03:30)
[2020-07-22] MEDS ORDERED: NITROGLYCERIN 0.4 MG SL TAB SL PRN (03:30)
[2020-07-22] MEDS ORDERED: ACETAMINOPHEN 325 MG TAB PO PRN ×2 (03:30)
[2020-07-22 04:15] LABS: HEMOGLOBIN A1C 6.1 % (4.0-6.0)
[2020-07-22 04:20] VITALS: BP 135/84
[2020-07-22 04:23] LABS: CRP QUANTITATIVE 25.5 mg/L (0.00-9.0); THYROID STIMULATING HORMONE 3.64 uIU/mL (0.36-3.74)
[2020-07-22] MEDS ORDERED: AMIO200T6 PO (04:55)
[2020-07-22 08:14] VITALS: BP 130/79
[2020-07-22] MEDS ORDERED: AMIODARONE HCL 200 MG TABLET PO SCH (09:00)
[2020-07-22] MEDS ORDERED: FAMOTIDINE/PF 20 MG/2 ML VIAL IV SCH (09:00)
[2020-07-22] MEDS: APIXABAN 5 MG TABLET PO SCH ×2 (09:56→19:55)
[2020-07-22] MEDS: FUROSEMIDE 40 MG TABLET PO SCH ×2 (09:56→19:55)
[2020-07-22] MEDS: METOPROLOL SUCCINATE 50 MG TAB.SR.24H PO SCH ×2 (09:56→19:56)
[2020-07-22] MEDS: FAMOTIDINE 20MG TAB 20 MG TAB PO SCH ×2 (09:56→19:55)
[2020-07-22] MEDS: SPIRONOLACTONE 25 MG TAB PO SCH (09:57)
[2020-07-22] MEDS: AMIODARONE HCL 200 MG TABLET PO SCH ×2 (09:57→09:58)
[2020-07-22] MEDS: LISINOPRIL 10 MG TABLET PO SCH (09:57)
[2020-07-22 12:04] VITALS: BP 126/90
[2020-07-22 16:30] VITALS: BP 143/93
[2020-07-22 19:30] VITALS: BP 137/93
[2020-07-22] MEDS: ATORVASTATIN CALCIUM 40 MG TABLET PO SCH (19:56)
[2020-07-22] MEDS ORDERED: KETOROLAC TROMETHAMINE 15MG/ML ONE (23:13)
[2020-07-22 23:18] VITALS: BP 146/99
[2020-07-23] MEDS: CLINDAMYCIN 600 MG/D5% WATER 50 ML IV SCH ×2 (02:52→11:24)
[2020-07-23 04:44] VITALS: BP 122/89
[2020-07-23 05:33] LABS: BASOPHILS % (AUTO) 0.6 % (0.0-5.0); EOSINOPHILS % (AUTO) 3.4 % (0.0-8.0); HEMATOCRIT 45.9 % (42-54); LYMPHOCYTES % (AUTO) 16.6 % (21.0-51.0); MEAN CORPUSCULAR HEMOGLOBIN 27.4 pg (27.0-33.0); MEAN CORPUSCULAR HGB CONC 32.7 g/dL (32.0-36.0); MEAN CORPUSCULAR VOLUME 83.8 fL (79-99); MONOCYTES % (AUTO) 11.9 % (3.0-13.0); NEUTROPHILS % (AUTO) 67.2 % (40.0-77.0); PLATELET COUNT (AUTO) 276 K/uL (130-400); RED BLOOD CELL COUNT(AUTO) 5.48 MIL/uL (4.50-6.20); RED CELL DISTRIBUTION WIDTH 14.6 % (11.0-15.5); WHITE BLOOD COUNT (AUTO) 6.2 K/uL (4.8-10.8)
[2020-07-23 05:44] LABS: CREATININE 1.3 mg/dL (0.5-1.5); CRP QUANTITATIVE 44.7 mg/L (0.00-9.0); POTASSIUM 3.6 mmol/L (3.5-5.1)
[2020-07-23 06:15] LABS: B-TYPE NATRIURETIC PEPTIDE 754 pg/mL (0-100)
[2020-07-23 07:56] VITALS: BP 115/80
[2020-07-23] MEDS: METOPROLOL SUCCINATE 50 MG TAB.SR.24H PO SCH ×2 (11:24→20:16)
[2020-07-23] MEDS: FUROSEMIDE 40 MG TABLET PO SCH ×2 (11:25→20:16)
[2020-07-23] MEDS: APIXABAN 5 MG TABLET PO SCH ×2 (11:25→20:16)
[2020-07-23] MEDS: AMIODARONE HCL 200 MG TABLET PO SCH (11:25)
[2020-07-23] MEDS: LISINOPRIL 10 MG TABLET PO SCH (11:26)
[2020-07-23] MEDS: FAMOTIDINE 20MG TAB 20 MG TAB PO SCH ×2 (11:32→20:16)
[2020-07-23] MEDS: SPIRONOLACTONE 25 MG TAB PO SCH (11:32)
[2020-07-23 12:11] VITALS: BP 133/90
[2020-07-23] MEDS ORDERED: VANCOMYCIN PROTOCOL PER PHARMACY IV SCH (13:00)
[2020-07-23] MEDS ORDERED: COMPOUND IV REFRIGERATED 1 EACH IVSOLN MISC PRN (13:30)
[2020-07-23] MEDS: CEFTRIAXONE SODIUM 1 GM IVP SCH (13:30)
[2020-07-23] MEDS ORDERED: VANCOMYCIN 2 GM in SODIUM CHLORIDE 0.9% 500ML 500 ML IV ONE (14:00)
[2020-07-23 16:21] VITALS: BP 137/94
[2020-07-23] MEDS: KETOROLAC TROMETHAMINE 15MG/ML IV PRN (18:10)
[2020-07-23 20:00] VITALS: BP 135/87
[2020-07-23] MEDS: VANCOMYCIN 1GM+NS 250ML 250 ML IV SCH (20:15)
[2020-07-23] MEDS: ATORVASTATIN CALCIUM 40 MG TABLET PO SCH (20:16)
[2020-07-24] VITALS (7 sets, daily range): BP systolic 124–144; BP diastolic 80–99
[2020-07-24 04:58] LABS: BASOPHILS % (AUTO) 0.7 % (0.0-5.0); EOSINOPHILS % (AUTO) 4.1 % (0.0-8.0); HEMATOCRIT 45.8 % (42-54); LYMPHOCYTES % (AUTO) 16.6 % (21.0-51.0); MEAN CORPUSCULAR HEMOGLOBIN 27.6 pg (27.0-33.0); MEAN CORPUSCULAR HGB CONC 33.2 g/dL (32.0-36.0); MEAN CORPUSCULAR VOLUME 83.3 fL (79-99); MONOCYTES % (AUTO) 13.1 % (3.0-13.0); NEUTROPHILS % (AUTO) 65.3 % (40.0-77.0); PLATELET COUNT (AUTO) 261 K/uL (130-400); RED CELL DISTRIBUTION WIDTH 14.4 % (11.0-15.5); WHITE BLOOD COUNT (AUTO) 5.7 K/uL (4.8-10.8)
[2020-07-24 05:06] LABS: CREATININE 1.1 mg/dL (0.5-1.5); POTASSIUM 3.9 mmol/L (3.5-5.1)
[2020-07-24] MEDS: VANCOMYCIN 1GM+NS 250ML 250 ML IV SCH ×2 (10:39→20:27)
[2020-07-24] MEDS: SPIRONOLACTONE 25 MG TAB PO SCH (10:40)
[2020-07-24] MEDS: APIXABAN 5 MG TABLET PO SCH ×2 (10:40→20:27)
[2020-07-24] MEDS: AMIODARONE HCL 200 MG TABLET PO SCH (10:41)
[2020-07-24] MEDS: FAMOTIDINE 20MG TAB 20 MG TAB PO SCH ×2 (10:41→20:26)
[2020-07-24] MEDS: METOPROLOL SUCCINATE 50 MG TAB.SR.24H PO SCH ×2 (10:41→20:27)
[2020-07-24] MEDS: LISINOPRIL 10 MG TABLET PO SCH (10:41)
[2020-07-24] MEDS: FUROSEMIDE 40 MG TABLET PO SCH ×2 (10:41→20:27)
[2020-07-24] MEDS: CEFTRIAXONE SODIUM 1 GM IVP SCH (13:00)
[2020-07-24] MEDS: ATORVASTATIN CALCIUM 40 MG TABLET PO SCH (20:27)
[2020-07-24] MEDS: KETOROLAC TROMETHAMINE 15MG/ML IV PRN (23:07)
[2020-07-25 03:45] VITALS: BP 109/70
[2020-07-25 05:49] LABS: BASOPHILS % (AUTO) 0.6 % (0.0-5.0); EOSINOPHILS % (AUTO) 3.7 % (0.0-8.0); HEMATOCRIT 45.3 % (42-54); LYMPHOCYTES % (AUTO) 15.9 % (21.0-51.0); MEAN CORPUSCULAR HEMOGLOBIN 27.4 pg (27.0-33.0); MEAN CORPUSCULAR HGB CONC 32.7 g/dL (32.0-36.0); MEAN CORPUSCULAR VOLUME 83.9 fL (79-99); MONOCYTES % (AUTO) 12.3 % (3.0-13.0); PLATELET COUNT (AUTO) 267 K/uL (130-400); RED CELL DISTRIBUTION WIDTH 14.3 % (11.0-15.5); WHITE BLOOD COUNT (AUTO) 6.2 K/uL (4.8-10.8)
[2020-07-25 06:09] LABS: CREATININE 1.2 mg/dL (0.5-1.5); POTASSIUM 3.8 mmol/L (3.5-5.1)
[2020-07-25 08:00] VITALS: BP 130/93
[2020-07-25] MEDS: METOPROLOL SUCCINATE 50 MG TAB.SR.24H PO SCH ×2 (09:00→21:00)
[2020-07-25] MEDS: SPIRONOLACTONE 25 MG TAB PO SCH (09:08)
[2020-07-25] MEDS: AMIODARONE HCL 200 MG TABLET PO SCH (09:08)
[2020-07-25] MEDS: APIXABAN 5 MG TABLET PO SCH ×2 (09:08→21:27)
[2020-07-25] MEDS: FUROSEMIDE 40 MG TABLET PO SCH ×2 (09:09→21:27)
[2020-07-25] MEDS: LISINOPRIL 10 MG TABLET PO SCH (09:09)
[2020-07-25] MEDS: FAMOTIDINE 20MG TAB 20 MG TAB PO SCH ×2 (09:09→21:26)
[2020-07-25] MEDS: VANCOMYCIN 1GM+NS 250ML 250 ML IV SCH ×2 (09:09→21:30)
[2020-07-25] MEDS: KETOROLAC TROMETHAMINE 15MG/ML IV PRN (09:25)
[2020-07-25 11:37] VITALS: BP 140/94
[2020-07-25] MEDS: CEFTRIAXONE SODIUM 1 GM IVP SCH (13:00)
[2020-07-25 16:00] VITALS: BP 149/109
[2020-07-25 19:30] VITALS: BP 143/90
[2020-07-25] MEDS: ATORVASTATIN CALCIUM 40 MG TABLET PO SCH (21:26)
[2020-07-25 23:31] VITALS: BP 150/94
[2020-07-26 03:37] VITALS: BP 151/94
[2020-07-26 05:11] LABS: BASOPHILS % (AUTO) 0.7 % (0.0-5.0); EOSINOPHILS % (AUTO) 3.8 % (0.0-8.0); HEMATOCRIT 45.4 % (42-54); LYMPHOCYTES % (AUTO) 18.5 % (21.0-51.0); MEAN CORPUSCULAR HEMOGLOBIN 27.4 pg (27.0-33.0); MEAN CORPUSCULAR VOLUME 82.8 fL (79-99); MONOCYTES % (AUTO) 10.6 % (3.0-13.0); NEUTROPHILS % (AUTO) 66.2 % (40.0-77.0); PLATELET COUNT (AUTO) 280 K/uL (130-400); RED BLOOD CELL COUNT(AUTO) 5.48 MIL/uL (4.50-6.20); RED CELL DISTRIBUTION WIDTH 13.8 % (11.0-15.5); WHITE BLOOD COUNT (AUTO) 5.8 K/uL (4.8-10.8)
[2020-07-26 05:29] LABS: CREATININE 1.2 mg/dL (0.5-1.5); POTASSIUM 3.4 mmol/L (3.5-5.1)
[2020-07-26 08:00] VITALS: BP 144/95
[2020-07-26] MEDS ORDERED: POTASSIUM CHLORIDE 10% ELIXIR 20 MEQ/15 ML UDCUP PO PRN (08:45)
[2020-07-26] MEDS ORDERED: LIDOCAINE HCL-MPF 1% 2ML VIAL IV PRN (08:45)
[2020-07-26] MEDS ORDERED: POTASSIUM CHLORIDE 20MEQ/100ML 100 ML IV PRN (08:45)
[2020-07-26] MEDS ORDERED: POTASSIUM CHLORIDE 20 MEQ ERTAB PO PRN (08:45)
[2020-07-26] MEDS: METOPROLOL SUCCINATE 50 MG TAB.SR.24H PO SCH (09:00)
[2020-07-26] MEDS: AMIODARONE HCL 200 MG TABLET PO SCH (10:29)
[2020-07-26] MEDS: SPIRONOLACTONE 25 MG TAB PO SCH (10:30)
[2020-07-26] MEDS: FUROSEMIDE 40 MG TABLET PO SCH (10:30)
[2020-07-26] MEDS: APIXABAN 5 MG TABLET PO SCH (10:30)
[2020-07-26] MEDS: LISINOPRIL 10 MG TABLET PO SCH (10:30)
[2020-07-26] MEDS: FAMOTIDINE 20MG TAB 20 MG TAB PO SCH (10:30)
[2020-07-26] MEDS: KETOROLAC TROMETHAMINE 15MG/ML IV PRN (10:36)
[2020-07-26] MEDS ORDERED: LEVO500T89 PO (11:26)
[2020-07-26 11:46] VITALS: BP 149/112
[2020-07-26] MEDS: CEFTRIAXONE SODIUM 1 GM IVP SCH (13:00)
== END 2020-07-26 15:15 | disposition home or self-care (01) | DRG 872 ==
LOC: EDH 00:08 → EDHIP 00:09 → 3BH 03:56
PROVIDERS: ADMIT Internal Medicine; ATTEND Internal Medicine
DX: A41.89 Other specified sepsis (principal); L03.116 Cellulitis of left lower limb; N39.0 Urinary tract infection, site not specified; I50.42 Chronic combined systolic (congestive) and diastolic (congestive) heart failure; I48.19 Other persistent atrial fibrillation; I42.0 Dilated cardiomyopathy; I82.612 Acute embolism and thrombosis of superficial veins of left upper extremity; L03.114 Cellulitis of left upper limb; Z68.41 Body mass index [BMI] 40.0-44.9, adult; I80.9 Phlebitis and thrombophlebitis of unspecified site; G47.33 Obstructive sleep apnea (adult) (pediatric); B96.89 Other specified bacterial agents as the cause of diseases classified elsewhere; E66.01 Morbid (severe) obesity due to excess calories; I11.0 Hypertensive heart disease with heart failure; Z79.01 Long term (current) use of anticoagulants; Z79.899 Other long term (current) drug therapy; Z86.72 Personal history of thrombophlebitis; Z87.442 Personal history of urinary calculi
CPT/HCPCS: 36415; 71045; 73130; 73630; 80048; 80053; 80061; 80202; 80305; 81001; 82550; 82948; 83036; 83880; 84145; 84443; 84484; 85025; 85610; 85651; 85730; 86140; 87040; 87077; 87088; 87186; 93005; 93971; 99291; G0378; J0696; J1885; J1940; J3370; J3490; J7040

== ENCOUNTER 2020-09-16 23:55 | Inpatient (IN) | payer MEDICAID, OTHER ==
[~2020-09-16] VITALS: Ht 182.9 cm; Wt 115.6 kg
[~2020-09-16 23:55] MED LIST changes: -AMIO200T44 PO; +AMIO200T68 PO; +LEVO500T90 PO; -MAGN100T5 PO
[2020-09-17] MEDS ORDERED: FUROSEMIDE 40MG VIAL ONE (00:36)
[2020-09-17 00:44] LABS: BASOPHILS % (AUTO) 0.7 % (0.0-5.0); EOSINOPHILS % (AUTO) 2.3 % (0.0-8.0); HEMATOCRIT 40.9 % (42-54); LYMPHOCYTES % (AUTO) 13.1 % (21.0-51.0); MEAN CORPUSCULAR HEMOGLOBIN 30.3 pg (27.0-33.0); MEAN CORPUSCULAR HGB CONC 35.2 g/dL (32.0-36.0); MEAN CORPUSCULAR VOLUME 86.1 fL (79-99); MONOCYTES % (AUTO) 17.2 % (3.0-13.0); NEUTROPHILS % (AUTO) 66.3 % (40.0-77.0); PLATELET COUNT (AUTO) 303 K/uL (130-400); RED BLOOD CELL COUNT(AUTO) 4.75 MIL/uL (4.50-6.20); RED CELL DISTRIBUTION WIDTH 16.4 % (11.0-15.5); WHITE BLOOD COUNT (AUTO) 8.4 K/uL (4.8-10.8)
[2020-09-17 00:45] LABS: CREATININE 1.2 mg/dL (0.5-1.5); POTASSIUM 3.2 mmol/L (3.5-5.1)
[2020-09-17 00:49] LABS: ALBUMIN 3.4 g/dL (3.5-5.0); BILIRUBIN,TOTAL 0.4 mg/dL (0.2-1.0); INR 1.05 (0.85-1.15); PROTHROMBIN TIME 11.4 SEC (9.6-11.6); TOTAL PROTEIN, SERUM 7.7 g/dL (6.0-8.3)
[2020-09-17 00:50] LABS: PARTIAL THROMBOPLASTIN TIME 27.9 SEC (26.3-35.5)
[2020-09-17 01:00] LABS: B-TYPE NATRIURETIC PEPTIDE 714 pg/mL (0-100)
[2020-09-17] MEDS ORDERED: KETOROLAC 30MG VIAL (30MG/ML) ONE ×2 (01:19→23:47)
[2020-09-17] MEDS ORDERED: CLINDAMYCIN IVPB 900MG/50ML 50 ML IV ONE (02:57)
[2020-09-17] MEDS ORDERED: CLINDAMYCIN IVPB 600MG/50ML 50 ML IV SCH (04:45)
[2020-09-17 06:15] LABS: HEMOGLOBIN A1C 4.8 % (4.0-6.0)
[2020-09-17] MEDS ORDERED: POTASSIUM CHLORIDE 20MEQ/100ML 100 ML IV PRN (07:45)
[2020-09-17] MEDS ORDERED: POTASSIUM CHLORIDE 10% ELIXIR 20 MEQ/15 ML UDCUP PO PRN (07:45)
[2020-09-17 08:58] LABS: CREATININE 1.1 mg/dL (0.5-1.5); MAGNESIUM 1.6 mg/dL (1.80-2.40)
[2020-09-17] MEDS ORDERED: METOPROLOL SUCCINATE 50 MG TAB.SR.24H PO SCH (09:00)
[2020-09-17 09:01] VITALS: BP 168/109
[2020-09-17] MEDS: LISINOPRIL 20 MG TABLET PO SCH (10:02)
[2020-09-17] MEDS: APIXABAN 5 MG TABLET PO SCH ×2 (10:02→20:51)
[2020-09-17] MEDS: METOPROLOL SUCCINATE 50 MG TAB.SR.24H PO SCH (10:11)
[2020-09-17] MEDS ORDERED: MAGNESIUM 2GM PREMIX 50ML 50 ML IV SCH (10:15)
[2020-09-17] MEDS: KCL 20 MEQ ERTAB PO PRN ×2 (10:18→12:25)
[2020-09-17] MEDS: SPIRONOLACTONE 25 MG TAB PO SCH (10:21)
[2020-09-17 11:00] VITALS: BP 158/98
[2020-09-17] MEDS: LIDOCAINE HCL-MPF 1% 2ML VIAL IV SCH (12:25)
[2020-09-17] MEDS: FUROSEMIDE 40MG VIAL IVP SCH ×2 (12:26→20:51)
[2020-09-17 14:31] LABS: AMPHET/METH SCREEN,URINE NEGATIVE (NEGATIVE); BARBITURATE SCREEN, URINE NEGATIVE (NEGATIVE); BENZODIAZEPINES SCREEN,URINE NEGATIVE (NEGATIVE); CANNABINOID SCREEN,URINE NEGATIVE (NEGATIVE); COCAINE SCREEN,URINE NEGATIVE (NEGATIVE); OPIATE SCREEN,URINE NEGATIVE (NEGATIVE); PHENCYCLIDINE SCREEN,URINE NEGATIVE (NEGATIVE)
[2020-09-17 16:00] VITALS: BP 149/96
[2020-09-17 18:21] LABS: CREATININE 1.2 mg/dL (0.5-1.5); POTASSIUM 3.1 mmol/L (3.5-5.1)
[2020-09-17] MEDS ORDERED: POTASSIUM CHLORIDE 10% ELIXIR 20 MEQ/15 ML UDCUP PO SCH (18:30)
[2020-09-17 20:00] VITALS: BP 130/73
[2020-09-17] MEDS ORDERED: KETOROLAC 30MG VIAL (30MG/ML) IV PRN (23:30)
[2020-09-17 23:35] VITALS: BP 129/82
[2020-09-18 03:48] VITALS: BP 129/75
[2020-09-18 05:45] LABS: BASOPHILS % (AUTO) 0.5 % (0.0-5.0); EOSINOPHILS % (AUTO) 3.1 % (0.0-8.0); LYMPHOCYTES % (AUTO) 17.1 % (21.0-51.0); MEAN CORPUSCULAR HEMOGLOBIN 29.1 pg (27.0-33.0); MEAN CORPUSCULAR HGB CONC 33.2 g/dL (32.0-36.0); MEAN CORPUSCULAR VOLUME 87.8 fL (79-99); MONOCYTES % (AUTO) 12.8 % (3.0-13.0); PLATELET COUNT (AUTO) 276 K/uL (130-400); RED BLOOD CELL COUNT(AUTO) 4.67 MIL/uL (4.50-6.20); RED CELL DISTRIBUTION WIDTH 16.3 % (11.0-15.5); WHITE BLOOD COUNT (AUTO) 6.4 K/uL (4.8-10.8)
[2020-09-18 05:52] LABS: CREATININE 1.2 mg/dL (0.5-1.5); MAGNESIUM 1.9 mg/dL (1.80-2.40); POTASSIUM 3.4 mmol/L (3.5-5.1)
[2020-09-18] MEDS: KCL 20 MEQ ERTAB PO PRN ×2 (06:09→11:53)
[2020-09-18 08:18] VITALS: BP 129/86
[2020-09-18] MEDS: SPIRONOLACTONE 25 MG TAB PO SCH (08:30)
[2020-09-18] MEDS: APIXABAN 5 MG TABLET PO SCH ×2 (08:30→19:37)
[2020-09-18] MEDS: FUROSEMIDE 40MG VIAL IVP SCH (08:30)
[2020-09-18] MEDS: LISINOPRIL 20 MG TABLET PO SCH (08:30)
[2020-09-18] MEDS: METOPROLOL SUCCINATE 50 MG TAB.SR.24H PO SCH (08:31)
[2020-09-18] MEDS: KETOROLAC 30MG VIAL (30MG/ML) IV PRN ×2 (08:37)
[2020-09-18] MEDS ORDERED: METOPROLOL SUCCINATE 50 MG TAB.SR.24H PO SCH (09:00)
[2020-09-18] MEDS: LIDOCAINE HCL-MPF 1% 2ML VIAL IV SCH (11:52)
[2020-09-18 12:12] VITALS: BP 133/99
[2020-09-18 16:39] VITALS: BP 140/102
[2020-09-18] MEDS ORDERED: ACETAMINOPHEN WITH CODEINE 1 TAB TAB PO PRN (17:15)
[2020-09-18] MEDS: FUROSEMIDE 40 MG TABLET PO SCH (18:03)
[2020-09-18 19:00] VITALS: BP 158/91
[2020-09-19] VITALS: BP 153/89
[2020-09-19 04:00] VITALS: BP 134/80
[2020-09-19 05:07] LABS: B-TYPE NATRIURETIC PEPTIDE 469 pg/mL (0-100)
[2020-09-19 05:19] LABS: CREATININE 1.1 mg/dL (0.5-1.5); CRP QUANTITATIVE 29.9 mg/L (0.00-9.0); POTASSIUM 3.8 mmol/L (3.5-5.1); URIC ACID 8.6 mg/dL (2.6-7.2)
[2020-09-19] MEDS: KCL 20 MEQ ERTAB PO PRN ×2 (05:41→09:09)
[2020-09-19 06:07] LABS: ERYTHROCYTE SEDIMENTATION RATE 28 MM/HR (0-15)
[2020-09-19 08:00] VITALS: BP 154/96
[2020-09-19] MEDS: LIDOCAINE HCL-MPF 1% 2ML VIAL IV SCH (08:02)
[2020-09-19] MEDS ORDERED: SPIRONOLACTONE 25 MG TAB PO SCH (09:00)
[2020-09-19] MEDS ORDERED: METOPROLOL SUCCINATE 50 MG TAB.SR.24H PO SCH (09:00)
[2020-09-19] MEDS: LISINOPRIL 20 MG TABLET PO SCH (09:06)
[2020-09-19] MEDS: FUROSEMIDE 40 MG TABLET PO SCH (09:06)
[2020-09-19] MEDS: APIXABAN 5 MG TABLET PO SCH (09:06)
[2020-09-19] MEDS ORDERED: AMIO200T68 PO (10:23)
[2020-09-19] MEDS ORDERED: FURO40TA7 PO (10:23)
[2020-09-19] MEDS ORDERED: APIX5TAB PO (10:23)
[2020-09-19] MEDS ORDERED: SPIR50TA5 PO (10:23)
[2020-09-19] MEDS ORDERED: LISI20TA24 PO (10:23)
[2020-09-19] MEDS ORDERED: METO50TA9 PO (10:23)
[2020-09-19] MEDS ORDERED: COLC0.6C3 PO (10:51)
[2020-09-19 12:00] VITALS: BP 163/109
== END 2020-09-19 14:34 | disposition home or self-care (01) | DRG 292 ==
LOC: EDH 23:55 → EDHIP 23:56 → 3AH 09-17 08:57 → 4CH 09-17 22:51
PROVIDERS: ADMIT Internal Medicine; ATTEND Internal Medicine
DX: I11.0 Hypertensive heart disease with heart failure (principal); L03.116 Cellulitis of left lower limb; L03.115 Cellulitis of right lower limb; Z16.24 Resistance to multiple antibiotics; I50.43 Acute on chronic combined systolic (congestive) and diastolic (congestive) heart failure; I42.0 Dilated cardiomyopathy; I48.0 Paroxysmal atrial fibrillation; E66.9 Obesity, unspecified; E78.5 Hyperlipidemia, unspecified; E87.6 Hypokalemia; M10.9 Gout, unspecified; G47.33 Obstructive sleep apnea (adult) (pediatric); I25.10 Atherosclerotic heart disease of native coronary artery without angina pectoris; Z79.01 Long term (current) use of anticoagulants; Z79.899 Other long term (current) drug therapy; Z87.442 Personal history of urinary calculi; Z91.14 Patient's other noncompliance with medication regimen; Z91.19 Patient's noncompliance with other medical treatment and regimen; Z68.34 Body mass index [BMI] 34.0-34.9, adult
CPT/HCPCS: 36415; 71045; 73630; 80048; 80053; 80305; 82550; 83036; 83605; 83735; 83880; 84145; 84484; 84550; 85025; 85610; 85651; 85730; 86140; 87040; 93005; 93970; G0378; J1885; J1940; J3475; J3480; J3490

== ENCOUNTER 2021-07-10 10:50 | Emergency (ER) | payer OTHER ==
[~2021-07-10] VITALS: Ht 170.2 cm; Wt 124.7 kg
[~2021-07-10 10:50] MED LIST changes: +COLC0.6C3 PO; -FURO40TA5 PO; +FURO40TA7 PO; -LEVO500T90 PO; -METO-391 PO; +METO50TA9 PO
[2021-07-10] MEDS ORDERED: ACETAMINOPHEN 500 MG TABLET PO SCH (11:30)
[2021-07-10 11:34] LABS: BASOPHILS % (AUTO) 0.3 % (0.0-5.0); EOSINOPHILS % (AUTO) 1.7 % (0.0-8.0); HEMATOCRIT 49.6 % (42-54); LYMPHOCYTES % (AUTO) 7.5 % (21.0-51.0); MEAN CORPUSCULAR HEMOGLOBIN 27.5 pg (27.0-33.0); MEAN CORPUSCULAR HGB CONC 31.9 g/dL (32.0-36.0); MEAN CORPUSCULAR VOLUME 86.3 fL (79-99); MONOCYTES % (AUTO) 6.8 % (3.0-13.0); NEUTROPHILS % (AUTO) 83.4 % (40.0-77.0); PLATELET COUNT (AUTO) 342 K/uL (130-400); RED BLOOD CELL COUNT(AUTO) 5.75 MIL/uL (4.50-6.20); RED CELL DISTRIBUTION WIDTH 15.1 % (11.0-15.5); WHITE BLOOD COUNT (AUTO) 10.8 K/uL (4.8-10.8)
[2021-07-10 11:48] LABS: ALBUMIN 3.5 g/dL (3.5-5.0); BILIRUBIN,TOTAL 0.8 mg/dL (0.2-1.0); CREATININE 0.9 mg/dL (0.5-1.5); POTASSIUM 3.4 mmol/L (3.5-5.1); TOTAL PROTEIN, SERUM 8.5 g/dL (6.0-8.3); URIC ACID 9.4 mg/dL (2.6-7.2)
[2021-07-10 12:18] LABS: B-TYPE NATRIURETIC PEPTIDE 1040 pg/mL (0-100)
[2021-07-10] MEDS ORDERED: POTASSIUM BICARB/CIT AC 25 MEQ TABLET.EFF PO ONE (13:30)
[2021-07-10] MEDS ORDERED: POTASSIUM BICARB/CIT AC 25 MEQ TABLET.EFF ONE (13:47)
[2021-07-10] MEDS ORDERED: FUROSEMIDE 40 MG TABLET PO ONE (14:30)
[2021-07-10] MEDS ORDERED: FUROSEMIDE 40 MG TABLET ONE (14:41)
[2021-07-10] MEDS ORDERED: FURO20TA6 PO (14:52)
[2021-07-10 14:58] LABS: APPEARANCE,URINE Clear (CLEAR); BILIRUBIN,URINE Negative (NEGATIVE); COLOR,URINE Yellow (YELLOW); GLUCOSE, URINE (UA) Negative (NEGATIVE); KETONES,URINE Negative (NEGATIVE); LEUKOCYTE ESTERASE ,URINE Negative (NEGATIVE); NITRATE,URINE Negative (NEGATIVE); OCCULT BLOOD,URINE Negative (NEGATIVE); PH,URINE 6.5 (5.0-8.0); PROTEIN,URINE 300 mg/dL (NEGATIVE)
[2021-07-10 15:17] VITALS: BP 141/91
[2021-07-10 15:47] LABS: BACTERIA,URINE Rare /HPF (None Seen); RBC,URINE None Seen /HPF (0-1); WBC,URINE None Seen /HPF (0-1)
== END 2021-07-10 15:19 | disposition home or self-care (01) ==
LOC: EDH 10:50
DX: R60.0 Localized edema (principal); M79.605 Pain in left leg; M79.604 Pain in right leg; Z98.890 Other specified postprocedural states; Z79.899 Other long term (current) drug therapy
CPT/HCPCS: 36415; 71045; 80053; 81001; 83880; 84484; 84550; 85025; 93005